=== PATIENT | male | born 1990 | race Caucasian/White ===

== ENCOUNTER 2019-03-21 18:29 | Observation (INO) ==
[2019-03-21] MEDS ORDERED: XOPENEX 1.25 MG/3 ML NEBULE NEB ONE ×4 (18:37→18:44)
[2019-03-21] MEDS ORDERED: ZOFRAN INJ 4 MG VIAL ONE (18:41)
[2019-03-21] MEDS ORDERED: ZOFRAN INJ 4 MG VIAL IVP ONE (18:41)
[2019-03-21] MEDS ORDERED: DUONEB 0.5 MG/3 MG NEB ONE (18:57)
[2019-03-21] MEDS ORDERED: SOLU-Medrol 125 MG VIAL IVP ONE (18:57)
--- NOTE | 2019-03-21 18:57 | DR.SOBA ---
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 states he do not have a local doctor and do not have a history of asthma. He do not have any inhalers and states he has always been in good health. He denies tobacco, alcohol or drug use. He denies vapor use. States he has a cough with greenish sputum production. He denies fever, chills, nausea, vomiting, diarrhea or hematuria. Chief Complaint:: pt states" i can't hardly breathe and i'm rattling" pt sat at 90 in triage heart rate 140 - Reviewed Nurses Notes Reviewed: Yes - Source History Provided: Patient - Mode of Arrival Mode of Arrival: Ambulatory - Timing Onset of Chief Complaint: 03/21/19 - Duration Duration: Days - Context Onset:: With Light Exertion PE Risk Factors:: None History of:: None Currently on:: Neither Prehospital Care:: None - Modifying Factors Worsens:: Exertion Improves:: Nothing - Associated Signs and Symptoms Associated Signs and Symptoms: Cough, Nasal Congestion. denies: None, Fever, Wheeze, Sore Throat, Hemoptysis, Chest Pain, Leg Swelling, Calf Pain, Anxiety, Numbness, Perioral Numbness, Hands Numbness, Feet Numbness - If Cough Cough: Productive, Green PMH - PMH Past Medical History: No Past Surgical History: Yes Surgical History: Appendectomy - Family History History of Family Medical Conditions: Yes Family Medical History: Diabetes Mellitus, Cancer, MD, Hypertension - Social History Does any household member use tobacco: No Alcohol Use: None Do you use any recreational Drugs:: No Lives With: Family Lives Where: Home - infectious screening In the last 2 months have you had wt loss of >10#?: NO Have you had fever, night sweats or hemotysis?: No Have you traveled outside the country in the last 6 months?: No Isolation: Standard ROS - Review of Systems Constitutional: No Symptoms Reported Eyes: No Symptoms Reported. negative: See HPI, Eye Pain, Blurred Vision, Tearing, Discharge, Photophobia, Diplopia, Other ENTM: No Symptoms Reported, Nose Discharge, Nose Congestion Respiratoy: No Symptoms Reported, Productive Cough, Short of Breath, Wheezing. negative: See HPI, Non-Productive Cough, Moist Cough, Dry Cough, Hacking Cough, Barking Cough, Brassy Cough, Orthopnea, Stridor, Hemoptysis, Other Cardiovascular: No Symptoms Reported Gastrointestinal/Abdominal: No Symptoms Reported. negative: See HPI, Abdominal Pain, Constipation, Diarrhea, Nausea, Vomiting, Food Intolerance, Other Genitourinary: No Symptoms Reported Neurological: No Symptoms Reported. negative: See HPI, Anxiety, Depressed, Emotional Problems, Headache, Numbness, Paresthesia, Pre-existing Deficit, Seizure, Tingling, Tremors, Weakness, Dizziness, Problems Walking, Speech Problem, Other Musculoskeletal: No Symptoms Reported Integumentary: No Symptoms Reported. negative: See HPI, Change in Color, Change in Hair/Nails, Dryness, Lesions, Lumps, Rash, Itching, Wound, Bruises, Juandice, Other Hematologic/Lymphatic: No Symptoms Reported. negative: See HPI, Anemia, Blood Clots, Easy Bleeding, Easy Bruising, Swollen Glands, Lymphadenopathy, Other Endocrine: No Symptoms Reported Psychiatric: No Symptoms Reported. negative: See HPI, Anxiety, Depression, Floyd lucinations, Excessive crying, Suicidal, Other PE - General Limitations: No Limitations General Appearance: Alert, In Distress (moderate) - Head Head Exam: Normal Inspection, Atraumatic, Normocephalic - Eyes Eye exam: Normal Appearance, PERRL, EOMI. negative: Scleral Icterus, Conjunctival Injection, Nystagmus, Miosis, Mydrasis, Periorbital Swelling, Periorbital Tenderness, Other - ENT ENT Exam: Normal Exam, Normal Oropharynx, Normal External Ear Exam, Mucous Membranes Moist, TM's Normal Bilaterally - Neck Neck Exam: Normal Inspection, Full ROM, Trachea Midline. negative: Tenderness, Meningismus, Lymphadenopathy, Thyromegaly, Other - Chest Chest Inspection: Normal Inspection, Symmetric Chest Wall Rise. negative: Tenderness, Rash, Abscess, Other - Respiratory Respiratory Exam: Normal Lung Sounds Bilat, Prolonged Expiratory Phase, Respiratory Distress Respiratory Exam: Bilateral Wheezing, Right Rales - Cardiovascular Cardiovascular Exam: Regular Rate, Normal Rhythm, Normal Heart Sounds - Abdominal Exam Abdominal Exam: Normal Inspection, Normal Bowel Sounds, Soft. negative: Distention, Tenderness, Guarding, Rebound, Rigidity, Dimnished Bowel Sounds, Hyp eractive Bowel Sounds, Hypoactive Bowel Sounds, Organomegaly, Trauma, Incision, Ascites, Mass, Bruit, Pulsatile Mass, Hernia, Other Abdominal Tenderness: negative: RUQ, RLQ, LUQ, LLQ, Epigastrium, Suprapubic, Diffuse, Mild, Moderate, Severe, Other - Extremities Extremities Exam: Normal Inspection, Full ROM, Normal Capillary Refill. n egative: Tenderness, Edema, Joint Swelling, Calf Tenderness, Other - Back Back Exam: Normal Inspection, Full ROM. negative: Tenderness, (R) CVA Tenderness, (L) CVA Tenderness, Muscle Spasm, Paraspinal Tenderness, Vertebral Tenderness, Rashes, (R) Sciatic Notch Tenderness, (L) Sciatic Notch Tendern, (R) Straight Leg Raise, (L) Straight Leg Raise, Other - Neurologic Neurological Exam: Alert, Oriented X3, CN II-XII Intact, Normal Gait, Reflexes Normal - Psychiatric Psychiatric Exam: Normal Affect, Normal Mood. negative: Depressed, Agitated, Anxious, Flat Affect, Manic, Homicidal Ideation, Suicidal Ideation, Other - Skin Skin Exam: Warm, Dry, Intact, Normal Color - Vital Signs Vitals: Temperature 97.9 F Pulse Rate 87 Respiratory Rate 21 Blood Pressure 118/77 O2 Sat by Pulse Oximetry 95 Course - Reevaluation 1st: Improved - Consultation Called: 22:36 Call Returned: 22:36 (Dr. Krishnan to admit) - Education/Counseling Education/Counseling: Patient, Family Educated On: Treatment, Diagnosis, Needs for Follow Up ROR - Labs Reviewed Laboratory Results Reviewed?: Yes (All labs and x-ray results reviewed and discussed with pataient) Result Diagrams: 03/21/19 19:40 03/21/19 19:40 - XRAY XRAY Interpreted by: Radiologist (CXR: No acute cardiopulmonary changes noted), Self (CXR: increased marking right hilar and right middle lobe suspicious for early infiltrate) - EKG Rate: 112 Coolin: Normal Rhythm: ST Block: None Hypertrophy: None ST: Normal - Labs Reviewed Laboratory: WBC 12.6 X10^3/uL (3.6-10.0) H 03/21/19 19:40 RBC 5.28 X10^6/uL (4.7-6.0) 03/21/19 19:40 Hgb 16.5 g/dL (13.5-18.0) 03/21/19 19:40 Hct 44.9 % (42.0-54.0) 03/21/19 19:40 MCV 85.1 fL (80.0-100.0) 03/21/19 19:40 MCH 31.3 pg (27.0-34.0) 03/21/19 19:40 MCHC 36.8 g/dL (33.0-35.0) H 03/21/19 19:40 RDW 13.1 % (11.6-16.5) 03/21/19 19:40 Plt Count 243 X10^3/uL (150.0-450.0) 03/21/19 19:40 MPV 7.0 fL (7.4-11.0) L 03/21/19 19:40 Neut % (Auto) 77.7 % (42.0-75.0) H 03/21/19 19:40 Lymph % (Auto) 13.1 % (21.0-51.0) L 03/21/19 19:40 Monroe % (Auto) 5.9 % (0.0-13.0) 03/21/19 19:40 Eos % (Auto) 2.7 % (0.9-2.9) 03/21/19 19:40 Baso % (Auto) 0.6 % (0.2-1.0) 03/21/19 19:40 Neut # (Auto) 9.8 x10^3/uL (2.2-4.8) H 03/21/19 19:40 Lymph # (Auto) 1.6 X10^3/uL (1.3-2.9) 03/21/19 19:40 Monroe # (Auto) 0.7 x10^3/uL (0.3-0.8) 03/21/19 19:40 Eos # (Auto) 0.3 x10^3/uL (0.0-0.2) H 03/21/19 19:40 Baso # (Auto) 0.1 X10^3/uL (0.0-0.1) 03/21/19 19:40 Absolute Nucleated RBC 0.2 /100WBC 03/21/19 19:40 D-Dimer 256 ng/mL (0-400) 03/21/19 19:40 Sample Site Rra 03/21/19 19:47 ABG pH 7.430 (7.35-7.45) 03/21/19 19:47 ABG pCO2 42.0 mmHg (35.0-45.0) 03/21/19 19:47 ABG pO2 51.0 mmHg (80.0-100.0) L 03/21/19 19:47 ABG HCO3 27.9 mmol/L (22-26) H 03/21/19 19:47 ABG O2 Saturation 87.0 % (90-100) L 03/21/19 19:47 ABG Base Excess 3.2 mmol/L (-2.0-2.0) H 03/21/19 19:47 Ethan Test Pos 03/21/19 19:47 A-a Gradient 46.0 mmHg 03/21/19 19:47 FiO2 21.0 03/21/19 19:47 Blood Gas Comments Pt toll well eb 03/21/19 19:47 Sodium 140 mmol/L (136-145) 03/21/19 19:40 Corrected Sodium 141 mmol/L (136-145) 03/21/19 19:40 Potassium 3.3 mmol/L (3.5-5.1) L 03/21/19 19:40 Chloride 103 mmol/L (98-107) 03/21/19 19:40 Carbon Dioxide 27.9 mmol/L (21-32) 03/21/19 19:40 BUN 9 mg/dL (7-18) 03/21/19 19:40 Creatinine 0.85 mg/dL (0.70-1.30) 03/21/19 19:40 Est GFR (MDRD) Af Amer > 60 (>60) 03/21/19 19:40 Est GFR (MDRD) Non-Af > 60 (>60) 03/21/19 19:40 Glucose 123 mg/dL (65-99) H 03/21/19 19:40 Calcium 8.7 mg/dL (8.5-10.1) 03/21/19 19:40 Corrected Calcium TNP 03/21/19 19:40 Total Bilirubin 0.70 mg/dL (0.2-1.0) 03/21/19 19:40 AST 28 Units/L (15-37) 03/21/19 19:40 ALT 40 Units/L (12-78) 03/21/19 19:40 Alkaline Phosphatase 85 Units/L (46-116) 03/21/19 19:40 Creatine Kinase 101 Units/L (39-308) 03/21/19 19:40 CK-MB (CK-2) < 1.0 ng/mL (0-4.0) 03/21/19 19:40 CK/CKMB % Calc 1.0 % (<4) 03/21/19 19:40 Troponin I < 0.02 ng/mL (0-1.5) 03/21/19 19:40 Total Protein 7.8 g/dL (6.4-8.2) 03/21/19 19:40 Albumin 4.2 g/dL (3.4-5.0) 03/21/19 19:40 Globulin 3.6 g/dL (2.5-4.5) 03/21/19 19:40 Albumin/Globulin Ratio 1.2 Ratio (1.1-2.1) 03/21/19 19:40 Opioid - Opioid Risk Tool Total: 0 Total Score Risk Category: Low Risk - Diagnosis Discharge Problem: Acute respiratory distress, Bronchospasm with bronchitis, acute, Hypoxemia, Hyperglycemia - Discharge Plan Disposition: ADMITTED INPATIENT Condition: Stable - Follow ups/Referrals Follow ups/Referrals: NFD,None [Primary Care Provider] - 3 days - Instructions
[2019-03-21] MEDS ORDERED: SOLU-Medrol 125 MG VIAL ONE (18:58)
[2019-03-21] MEDS ORDERED: ROCEPHIN VIAL 1 GRAM IVP ONE (19:01)
[2019-03-21] MEDS: NS 1000 ML 1,000 ML IV SCH (19:02)
[2019-03-21] MEDS ORDERED: MAGNESIUM SULFATE 1 GRAM/100 mL PREMIX 1 G/100 ML BAG IV ONE (19:03)
[2019-03-21] MEDS ORDERED: ROCEPHIN VIAL 1 GRAM ONE (19:03)
[2019-03-21] MEDS ORDERED: DUONEB 0.5 MG/3 MG ONE (19:06)
--- NOTE | 2019-03-21 19:09 | RAD ---
HISTORY: Shortness of breath Study: Single-view chest Comparison: None Findings: The trachea is midline. The cardiac silhouette is unremarkable. The lungs are clear without focal infiltrate or effusion. The bony thorax is unremarkable. IMPRESSION: 1. No acute cardiopulmonary disease. Reported By:
[2019-03-21] MEDS ORDERED: MAGNESIUM SULFATE 50% INJ VIAL ONE (19:22)
[2019-03-21] MEDS ORDERED: NS 100 ML IV 100 ML IV ONE (19:23)
[2019-03-21 19:31] LABS: CHLORIDE 103 mmol/L (98-107); SODIUM 140 mmol/L (136-145); eGFR NON BLACK RACES > 60 (>60)
[2019-03-21 19:36] LABS: CREATINE KINASE MB < 1.0 ng/mL (0-4.0)
[2019-03-21 19:51] LABS: ABG BASE EXCESS 3.2 mmol/L (-2.0-2.0); ABG HCO3 27.9 mmol/L (22-26)
[2019-03-21 19:52] LABS: ABG ALLEN TEST POS
[2019-03-21 19:59] LABS: EOSINOPHILS # (AUTO) 0.3 x10^3/uL (0.0-0.2); HEMOGLOBIN 16.5 g/dL (13.5-18.0); LYMPHOCYTES # (AUTO) 1.6 X10^3/uL (1.3-2.9); MONOCYTES # (AUTO) 0.7 x10^3/uL (0.3-0.8)
[2019-03-21 20:10] LABS: BASOPHILS # (AUTO) 0.1 X10^3/uL (0.0-0.1); BASOPHILS % (AUTO) 0.6 % (0.2-1.0); EOSINOPHILS % (AUTO) 2.7 % (0.9-2.9); HEMATOCRIT 44.9 % (42.0-54.0); LYMPHOCYTES % (AUTO) 13.1 % (21.0-51.0); MEAN CORPUSCULAR HEMOGLOBIN 31.3 pg (27.0-34.0); MEAN CORPUSCULAR HGB CONC 36.8 g/dL (33.0-35.0); MEAN CORPUSCULAR VOLUME 85.1 fL (80.0-100.0); MONOCYTES % (AUTO) 5.9 % (0.0-13.0); NEUTROPHILS # (AUTO) 9.8 x10^3/uL (2.2-4.8); NEUTROPHILS % (AUTO) 77.7 % (42.0-75.0); PLATELET COUNT 243 X10^3/uL (150.0-450.0); RED BLOOD COUNT 5.28 X10^6/uL (4.7-6.0); RED CELL DISTRIBUTION WIDTH 13.1 % (11.6-16.5); WHITE BLOOD COUNT 12.6 X10^3/uL (3.6-10.0)
[2019-03-21 20:26] LABS: BLOOD UREA NITROGEN 9 mg/dL (7-18); CALCIUM 8.7 mg/dL (8.5-10.1); CARBON DIOXIDE 27.9 mmol/L (21-32); COR NA(FOR HYPERGLY) 141 mmol/L (136-145); CREATININE 0.85 mg/dL (0.70-1.30); TROPONIN I < 0.02 ng/mL (0-1.5)
[2019-03-21 20:31] LABS: ALANINE AMINOTRANSFERASE 40 Units/L (12-78); ALBUMIN 4.2 g/dL (3.4-5.0); ALKALINE PHOSPHATASE 85 Units/L (46-116); ASPARTATE AMINO TRANSFERASE 28 Units/L (15-37); CREATINE KINASE 101 Units/L (39-308); TOTAL PROTEIN 7.8 g/dL (6.4-8.2)
[2019-03-21] MEDS: LEVAQUIN PREMIX IV 500 MG 500 MG/100 ML BAG IV SCH (22:51)
[2019-03-21] MEDS ORDERED: ZITHROMAX INJ 500 MG VIAL 250 MG in NS 250 ML IV 250 ML IV SCH (23:00)
[2019-03-22] MEDS: DUONEB 0.5 MG/3 MG NEB SCH ×6 (01:19→20:07)
[2019-03-22] MEDS ORDERED: ZITHROMAX INJ 500 MG VIAL IV ONE (02:09)
[2019-03-22] MEDS ORDERED: NS 250 ML IV 250 ML IV ONE (02:09)
[2019-03-22] MEDS ORDERED: ZOFRAN INJ 4 MG VIAL IVP PRN (03:10)
[2019-03-22] MEDS ORDERED: ZOFRAN INJ 4 MG VIAL ONE (03:13)
[2019-03-22 04:30] LABS: BILIRUBIN,URINE NEGATIVE (NEGATIVE); BLOOD/HEMOGLOBIN,URINE NEGATIVE (NEGATIVE); GLUCOSE, URINE 1+ (NEGATIVE); KETONES,URINE 2+ (NEGATIVE); LEUKOCYTE ESTERASE ,URINE 1+ (NEGATIVE); NITRITES,URINE NEGATIVE (NEGATIVE); PROTEIN,URINE 2+ (NEGATIVE); UROBILINOGEN,URINE 2+ (NORMAL)
[2019-03-22 04:37] LABS: AMORPHOUS SEDIMENT,UR 1+ /HPF (NEGATIVE); APPEARANCE,URINE CLEAR (CLEAR); BACTERIA,URINE TRACE /HPF (NEGATIVE); COLOR,URINE AMBER (YELLOW); MUCUS,URINE NUMEROUS /HPF (NEGATIVE); RBC,URINE NONE SEEN /HPF (0-3); SQUAMOUS EPITHELIAL CELL,UR FEW /HPF (NEGATIVE)
[2019-03-22] MEDS ORDERED: PHENERGAN INJ 25 MG IM ONE (05:10)
[2019-03-22] MEDS: PHENERGAN INJ 25 MG IM PRN (05:18)
[2019-03-22 05:23] VITALS: BMI 28.5
[2019-03-22 06:05] LABS: BASOPHILS % (AUTO) 0.3 % (0.2-1.0); EOSINOPHILS % (AUTO) 0.1 % (0.9-2.9); LYMPHOCYTES # (AUTO) 0.7 X10^3/uL (1.3-2.9); LYMPHOCYTES % (AUTO) 8.5 % (21.0-51.0); MEAN CORPUSCULAR HGB CONC 41.5 g/dL (33.0-35.0); MEAN CORPUSCULAR VOLUME 91.5 fL (80.0-100.0); MEAN PLATELET VOLUME 7.4 fL (7.4-11.0); MONOCYTES # (AUTO) 0.2 x10^3/uL (0.3-0.8); MONOCYTES % (AUTO) 2.5 % (0.0-13.0); NEUTROPHILS # (AUTO) 6.9 x10^3/uL (2.2-4.8); NEUTROPHILS % (AUTO) 88.6 % (42.0-75.0); PLATELET COUNT 270 X10^3/uL (150.0-450.0); RED CELL DISTRIBUTION WIDTH 12.8 % (11.6-16.5); WHITE BLOOD COUNT 7.8 X10^3/uL (3.6-10.0)
[2019-03-22 06:08] LABS: BLOOD UREA NITROGEN 11 mg/dL (7-18); CALCIUM 8.5 mg/dL (8.5-10.1); CARBON DIOXIDE 22.8 mmol/L (21-32); CHLORIDE 101 mmol/L (98-107); COR NA(FOR HYPERGLY) 140 mmol/L (136-145); CREATININE 1.23 mg/dL (0.70-1.30); SODIUM 138 mmol/L (136-145); eGFR NON BLACK RACES > 60 (>60)
[2019-03-22 06:48] LABS: HEMATOCRIT 45.3 % (42.0-54.0); HEMOGLOBIN 16.8 g/dL (13.5-18.0)
[2019-03-22 07:03] LABS: PLATELET MORPHOLOGY COMMENT NORMAL (NORMAL)
[2019-03-22] MEDS: LEVAQUIN PREMIX IV 500 MG 500 MG/100 ML BAG IV SCH (10:13)
[2019-03-22] MEDS: NS 1000 ML 1,000 ML IV SCH ×2 (10:14→22:12)
[2019-03-22] MEDS: SOLU-Medrol 40 MG VIAL IVP SCH ×3 (10:14→16:25)
[2019-03-23] MEDS: DUONEB 0.5 MG/3 MG NEB SCH ×3 (01:10→08:33)
[2019-03-23] MEDS: SOLU-Medrol 40 MG VIAL IVP SCH ×2 (01:45→10:05)
[2019-03-23] MEDS: NS 1000 ML 1,000 ML IV SCH (01:45)
[2019-03-23 05:04] LABS: ALANINE AMINOTRANSFERASE 29 Units/L (12-78); ALBUMIN 3.5 g/dL (3.4-5.0); ALKALINE PHOSPHATASE 68 Units/L (46-116); ASPARTATE AMINO TRANSFERASE 16 Units/L (15-37); BLOOD UREA NITROGEN 14 mg/dL (7-18); CALCIUM 8.1 mg/dL (8.5-10.1); CARBON DIOXIDE 23.3 mmol/L (21-32); CHLORIDE 103 mmol/L (98-107); COR NA(FOR HYPERGLY) 139 mmol/L (136-145); CREATININE 0.97 mg/dL (0.70-1.30); SODIUM 137 mmol/L (136-145); TOTAL PROTEIN 6.6 g/dL (6.4-8.2); eGFR NON BLACK RACES > 60 (>60)
[2019-03-23 05:20] LABS: BASOPHILS % (AUTO) 0.1 % (0.2-1.0); EOSINOPHILS % (AUTO) 0.1 % (0.9-2.9); HEMATOCRIT 41.7 % (42.0-54.0); HEMOGLOBIN 15.1 g/dL (13.5-18.0); LYMPHOCYTES # (AUTO) 0.9 X10^3/uL (1.3-2.9); LYMPHOCYTES % (AUTO) 5.2 % (21.0-51.0); MEAN CORPUSCULAR HEMOGLOBIN 32.1 pg (27.0-34.0); MEAN CORPUSCULAR HGB CONC 36.2 g/dL (33.0-35.0); MEAN CORPUSCULAR VOLUME 88.6 fL (80.0-100.0); MEAN PLATELET VOLUME 7.4 fL (7.4-11.0); MONOCYTES # (AUTO) 0.6 x10^3/uL (0.3-0.8); MONOCYTES % (AUTO) 3.5 % (0.0-13.0); NEUTROPHILS % (AUTO) 91.1 % (42.0-75.0); PLATELET COUNT 251 X10^3/uL (150.0-450.0); RED BLOOD COUNT 4.71 X10^6/uL (4.7-6.0); RED CELL DISTRIBUTION WIDTH 13.4 % (11.6-16.5)
[2019-03-23 05:38] LABS: BAND NEUTROPHILS % 3 % (0-10); PLATELET MORPHOLOGY COMMENT NORMAL (NORMAL); WHITE BLOOD COUNT 16.5 X10^3/uL (3.6-10.0)
--- NOTE | 2019-03-23 06:06 | RAD ---
HISTORY: Shortness of breath Study: Chest AP portable Comparison: 03/21/2019 Findings: The heart is within normal limits in size. The elisabet are normal. The lungs are free of acute alveolar infiltrates. There is minimal subsegmental atelectasis in the right lung base. The remainder of the lung del cid are clear. The bony thorax is unremarkable. IMPRESSION: Mild subsegmental atelectasis right lung base Reported By:
--- NOTE | 2019-03-23 09:42 | DR.H&P ---
H&P - History & Physical for Day of: H&P Date: 03/21/19 - Chief Complaint Chief Complaint: SOB, COUGH. - History of Present Illness History of Present Illness: IS A 28 YEAR OLD WHITE MALE WHO PRESENTED TO THE ER WITH REPORTS OF SHORTNESS OF BREATH. PATIENT REPORTS THAT HE BEGAN HAVING SHORTNESS OF BREATH ONE DAY PRIOR. HE REPORTS SANDING WHILE AT WORK YESTERDAY. HE DENIES ASTHMA OR RESPIRATORY PROBLEMS. HE REPORTS A PRODUCTIVE COUGH WITH GREEN SPUTUM. ON ARRIVAL TO THE TRIAGE, VITALS WERE 97.9-140-26-90%RA-122/82. LABS WERE OBTAINED. ABNORMAL LAB VALUES INCLUDE THE FOLLOWING: WBC 12.6, POTASSIUM 3.3, GLUCOSE 123. BLOOD CULTURES WERE OBTAINED. A CHEST XRAY WAS OBTAINED AND REVEALED: NO ACUTE CARDIOPULMONARY DISEASE. EKG REVEALED: SINUS TACHYCARDIA WITH HR 112. HE WAS GIVEN ZITHROMAX 250MG IV X 1 DOSE IN THE ER. HE WAS ADMITTED FOR FURHTER EVALUATION AND TREATMENT OF ACUTE RESPIRATORY DISTRESS, HYPOXEMIA, AND BRONCHITIS. WE STARTED LEVAQUIN 500MG IV DAILY, SOLU-MEDROL 80MG IV Q8H, PHENERGAN 25MG IM Q6H PRN, AND NORMAL SALINE AT 75ML/HR. WE PLAN TO FOLLOW UP WITH AM LABS AND CHEST XRAY AND CONTINUE TO MONITOR. - Past Surgical History Surgical History: Appendectomy - Family History Family Medical History: Diabetes Mellitus, Cancer, Hypertension - Social History Does any household member use tobacco: No Alcohol Use: None Drug Use: None Prescription drug monitoring program results: PDMP was not reviewed - Medications Home Medications: No Known Drug Allergies Allergy (Verified 05/07/18 23:47) - Review of Systems Constitutional: No Symptoms Reported Eyes: No Symptoms Reported ENT: No Symptoms Reported Respiratory: Cough, Shortness of Breath, Sputum Cardiovascular: No Symptoms Reported Gastrointestinal: No Symptoms Reported Genitourinary: No Symptoms Reported Musculoskeletal: No Symptoms Reported Skin: No Symptoms Reported Neurological: Weakness - Physical Exam Vital Signs: Temperature 98.1 F Pulse Rate [Left Brachial] 97 Pulse Rate 97 Respiratory Rate 20 Blood Pressure [Left Arm] 127/73 Blood Pressure 118/72 O2 Sat by Pulse Oximetry 98 Oriented: Normal Eyes: Normal Ear: Normal Nose: Normal Throat: Normal Respiratory: Wheezes Throughout Cardiovascular: Tachycardia. negative: S3, S4, Murmur : Normal Auscultation: Bowel Sounds: Normal Palpation: Normal Tenderness: Normal Skin: Normal Musculoskeletal: Normal Psychiatric: Normal Mood Description: Calm Affect: Normal Speech Pattern: Clear - Assessment/Plan (1) Acute respiratory distress Status: Acute Plan: ADMIT, RESPIRATORY TREATMENTS, IV ANTIBIOTICS, IV STEROIDS, SUPPLEMENTAL OXYGEN, CONTINUE TO MONITOR (2) Bronchospasm with bronchitis, acute Status: Acute (3) Hypoxemia Status: Acute - Allergies Allergies/Adverse Reactions: Allergies Allergy/AdvReac Type Severity Reaction Status Date / Time No Known Drug Allergies Allergy Verified 05/07/18 23:47
[2019-03-23] MEDS: LEVAQUIN PREMIX IV 500 MG 500 MG/100 ML BAG IV SCH (10:05)
[2019-03-23 13:41] VITALS: BP 113/67
[2019-03-24] MEDS ORDERED: LEVAQUIN PREMIX IV 500 MG 500 MG/100 ML BAG IV SCH (09:00)
== END 2019-03-23 11:20 | disposition home or self-care (01) ==
LOC: MED/SURG 18:29 → ER 18:29 → MED/SURG 23:00
PROVIDERS: ADMIT Internal Medicine; ATTEND Internal Medicine
DX: J20.9 Acute bronchitis, unspecified; R06.02 Shortness of breath; R73.09 Other abnormal glucose; R06.03 Acute respiratory distress; R09.02 Hypoxemia
CPT/HCPCS: 36415; 36600; 71010; 71045; 80048; 80053; 80307; 81001; 82550; 82553; 82803; 84484; 85025; 85378; 87040; 93005; 94640; 96365; 96367; 96372; 96374; 96375; 99284; A4216; A4222; G0378; G0434; J0456; J0696; J1956; J2405; J2550; J2920; J2930; J3475; J7030; J7050; J7620